=== PATIENT | female | born 1950 | race Caucasian/White ===

== ENCOUNTER 2020-01-20 10:00 | Outpatient (RCR) | payer MEDICARE, BC ==
--- NOTE | 2020-01-22 10:30 | NUR ---
ST NOTE: Pt no show for therapy session today, next apt 01/27/20
--- NOTE | 2020-01-22 11:12 | NUR ---
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
== END 2020-01-24 ==
LOC: ST 10:00
PROVIDERS: ATTEND Psychiatry & Neurology Neurology
DX: R47.01 Aphasia (principal)
CPT/HCPCS: 92523

== ENCOUNTER 2020-02-17 10:00 | Outpatient (RCR) | payer MEDICARE, BC ==
--- NOTE | 2020-01-29 12:58 | NUR ---
Subjective: Pt seen no family present. No c/o pain. Objective: Pt seen for speech and language therapy. Short term goals and progress follow: 1.Pt will demonstrate use of memory strategies for remote memory with use of journaling and calendar with independenceDiscussed use of corporate planner or notebook for journaling. Pt reported writing down information helps improve her memory of an event, not because she needs to reference what shes written, but because it helps solidify the event in her memory. In future will discuss using dated journal for pt to easily refer back to topics via dates. 2.Pt will use semantic matrix for to improve word finding deficits with independencept required min A to complete semantic matrix with abstract concepts. Pt not currently using this strategy for anomia, this is a custodial strategy for pt to utilize as her condition deteriorates 3.Pt will complete concrete and abstract divergent and convergent tasks with 80% accuracy. Goals met, pt 97%-100% accurate with this goal 4.Pt will participate in continued dx/txdysarthria assessment completed on 01/06/20 5.Pt to complete diodokokinetic repetitions of /p/t/k/ 25 reps in 15 seconds with regular rate not addressed this session, continue goal 6.Pt to read /s/ in Initial/Medial/Final positions in paragraphs aloud with 95% accuracypt produced initial and final /s/ with some lateralization of the sound. Pt unable to adjust articulation of the sound despite moderate cues. Pt 95% accurate with initial/medial/final ?s? at sentence level. Goal met 7.Pt to use one familiar phrase when discussing language deficits with family and strangersreviewed functional phrases and how to simplify message. Pt continues to develop language to discuss this topic 8.Pt to make phone calls to unfamiliar listeners completing goal of scheduling apt or gathering pre-determined information with use of script or bullet notesto begin 02/05/2020 9.Pt to produce multisyllabic words with 95% accuracypt required minimal cues, continue goal and have pt make sentences with target multisyllabic words. 10.Pt to participate in lingual HEP with 95% accuracy and Inot addressed. Pt reported she has not been doing her HEP. Reviewed why exercises are important. 11.Pt to answer open ended questions with 95% accuracy and no halting speechNo halting speech in conversation today, will continue to monitor when she is speaking with unfamiliar listeners Assessment: Pt continues to present with mild lingual weakness, decreased agility/coordination, mild expressive aphasia, and minimal intermittent dysarthria in conversational speech, and mild short term memory deficits. Pt very receptive to use of strategies and treatment POC. Education completed as indicated, with pt indicating understanding. Plan: Will continue therapy per POC x 7 additional session Marilu Brothers M.S., CCC-SHEET CUTTING OPERATOR 01/29/2020 Skilled Time Spent 50 Minutes Speech and Language Treatment 1 Please sign updated POC if you agree with treatment plan of care. Benny Baker MD Date:
== END 2020-02-24 ==
LOC: ST 10:00
PROVIDERS: ATTEND Psychiatry & Neurology Neurology
DX: R47.01 Aphasia (principal)